=== PATIENT | male | born 2000 | race Caucasian/White ===

== ENCOUNTER 2025-07-08 18:31 | Emergency (ER) | payer OTHER ==
[~2025-07-08] VITALS: Ht 175.3 cm; Wt 74.3 kg
[2025-07-08 22:35] VITALS: BP 127/59; TEMP 97.2; O2SAT 100
[2025-07-08] MEDS: KETOROLAC 60 MG/2 ML VIAL IM ONE (22:45)
== END 2025-07-08 22:53 | disposition home or self-care (01) ==
LOC: M ED 18:31
DX: K08.89 Other specified disorders of teeth and supporting structures (principal)
CPT/HCPCS: 96372; 99283; J1885